=== PATIENT | female | born 1945 | race Caucasian/White ===

== ENCOUNTER 2024-03-24 18:48 | Emergency (ER) | payer MEDICARE, OTHER ==
[~2024-03-24] VITALS: Wt 81.6 kg
[2024-03-24] MEDS ORDERED: methylPREDNISolone sod succ 125 MG VIAL IM ONE (19:05)
[2024-03-24] MEDS ORDERED: METHOCARBAMOL 500 MG TAB PO ONE (19:05)
[2024-03-24] MEDS ORDERED: METHOCARBAMOL500 M1 PO (19:25)
[2024-03-24] MEDS ORDERED: PREDNISONE20 M1 PO (19:25)
== END 2024-03-24 19:44 | disposition home or self-care (01) ==
LOC: ED 18:48
DX: S39.012A Strain of muscle, fascia and tendon of lower back, initial encounter (principal); Z88.0 Allergy status to penicillin; Z88.6 Allergy status to analgesic agent; Z88.8 Allergy status to other drugs, medicaments and biological substances; Z88.1 Allergy status to other antibiotic agents; Z88.5 Allergy status to narcotic agent; X58.XXXA Exposure to other specified factors, initial encounter; Y93.F1 Activity, caregiving, bathing; Y92.89 Other specified places as the place of occurrence of the external cause; Y99.8 Other external cause status